=== PATIENT | female | born 1955 | race Two or more races ===

== ENCOUNTER 2020-10-08 17:48 | Emergency (ER) | payer OTHER ==
[2020-10-08 18:31] VITALS: TEMP 100.4
[2020-10-08 18:55] VITALS: BP 153/74; PULSE 90; BMI 43.2
[2020-10-08] MEDS ORDERED: ACETAMINOPHEN 325 MG TABLET (FP) PO ONE (18:56)
[2020-10-08] MEDS ORDERED: ACETAMINOPHEN 325 MG TABLET (FP) ONE (19:00)
== END 2020-10-08 20:30 | disposition home or self-care (01) ==
LOC: JERFT 17:48 → EDBD 17:48 → JERFT 20:30
DX: U07.1 COVID-19 (principal)
CPT/HCPCS: 71045-TC-FY; 99284-25; C9803; U0003

== ENCOUNTER 2021-03-27 13:30 | Emergency (ER) | payer OTHER ==
[2021-03-27 13:42] VITALS: BP 135/77; PULSE 93; BMI 31.9
== END 2021-03-27 16:02 | disposition left against medical advice (07) ==
LOC: JER 13:30
DX: M25.551 Pain in right hip (principal)
CPT/HCPCS: 99281-25

== ENCOUNTER 2021-06-23 06:22 | Day surgery (SDC) | payer OTHER ==
[2021-06-14 10:59] VITALS: BMI 32.8
[2021-06-23] MEDS ORDERED: ceFAZolin SODIUM 1 GM VIAL ONE (07:09)
[2021-06-23] MEDS ORDERED: PROPOFOL 20 ML ONE ×2 (07:09)
[2021-06-23] MEDS ORDERED: PHENYLEPHRINE HCL 10 MG/1 ML SINGLE DOSE VIAL ONE (07:09)
[2021-06-23] MEDS ORDERED: KETOROLAC TROMETHAMINE 30 MG/1 ML VIAL ONE (07:09)
[2021-06-23] MEDS ORDERED: ONDANSETRON 4 MG/2 ML VIAL ONE (07:09)
[2021-06-23] MEDS ORDERED: DEXAMETHASONE SOD PHOSPHATE 4 MG/1 ML VIAL ONE (07:09)
[2021-06-23] MEDS ORDERED: LIDOCAINE HCL/PF 2% SDV 5ML VIAL ONE (07:09)
[2021-06-23] MEDS ORDERED: SUCCINYLCHOLINE CHLORIDE 200 MG/10 ML SYRINGE ONE (07:09)
[2021-06-23] MEDS ORDERED: ePHEDrine SULFATE 50 MG/1 ML AMPULE ONE (07:11)
[2021-06-23] MEDS ORDERED: MIDAZOLAM HCL 2 MG/2 ML SINGLE DOSE VIAL ONE ×2 (07:19)
[2021-06-23] MEDS ORDERED: ROPIVACAINE HCL 0.5% 30ML VIAL ONE (07:24)
[2021-06-23] MEDS ORDERED: EPINEPHrine 1:1,000 1 MG/1 ML - 30ML VIAL (INJECTION) ONE (07:32)
[2021-06-23] MEDS ORDERED: BUPIVACAINE HCL/EPINEPHRINE/PF 30 ML VIAL IJ ONE (07:59)
[2021-06-23] MEDS ORDERED: ACETAMINOPHEN 1000 MG/100 ML VIAL (NON FORMULARY) IVPB PRN (10:18)
[2021-06-23] MEDS ORDERED: ONDANSETRON 4 MG/2 ML VIAL IVPUSH PRN (10:19)
[2021-06-23] MEDS ORDERED: oxyCODONE HCL 5 MG TABLET PO PRN ×2 (10:19)
[2021-06-23] MEDS ORDERED: LACTATED RINGERS SOLUTION 1,000 ML IV SCH (10:30)
[2021-06-23 11:01] VITALS: TEMP 97.1
[2021-06-23 14:21] VITALS: BP 133/77; PULSE 78
== END 2021-06-23 12:30 | disposition home or self-care (01) ==
LOC: FASU 06:22
PROVIDERS: ATTEND Orthopaedic Surgery
PROC: 0RBJ4ZZ Excision of Right Shoulder Joint, Percutaneous Endoscopic Approach (ICD-10-PCS; 2021-06-23)
PROC: 0PB94ZZ Excision of Right Clavicle, Percutaneous Endoscopic Approach (ICD-10-PCS; principal; 2021-06-23 09:04)
PROC: 0RNJ4ZZ Release Right Shoulder Joint, Percutaneous Endoscopic Approach (ICD-10-PCS; 2021-06-23 09:04)
DX: M75.121 Complete rotator cuff tear or rupture of right shoulder, not specified as traumatic (principal); M66.811 Spontaneous rupture of other tendons, right shoulder; M65.811 Other synovitis and tenosynovitis, right shoulder; M75.01 Adhesive capsulitis of right shoulder; M12.811 Other specific arthropathies, not elsewhere classified, right shoulder
CPT/HCPCS: 88304-TC; 94760